=== PATIENT | female | born 1980 | race Caucasian/White ===

== ENCOUNTER 2023-10-20 10:45 | Inpatient (IN) | payer OTHER ==
[~2023-10-20 10:45] MED LIST: TYLENOL-CODEINE1 TAB PO
[2023-10-20 11:24] VITALS: BP 115/82
[2023-10-26] MEDS ORDERED: CEFAZOLIN SODIUM 1,000 MG VIAL ONE (08:26)
[2023-10-26] MEDS ORDERED: POVIDONE-IODINE 118 ML BOTT TOP ONE (09:25)
[2023-10-26] MEDS ORDERED: HEMOSTATIC MATRIX 1 KIT KIT TOP ONE (11:21)
[2023-10-26] MEDS ORDERED: SURGIFLO APPLICATOR 1 EACH APPL TOP ONE ×2 (11:22→11:23)
[2023-10-26] MEDS ORDERED: SUGAMMADEX SODIUM 200 MG/2 ML VIAL IV ONE (11:39)
[2023-10-26] MEDS ORDERED: MORPHINE SULFATE 4 MG,MORPHINE SULFATE 2 MG IV PRN (12:00)
[2023-10-26] MEDS ORDERED: ONDANSETRON HCL 2 MG/ML VIAL IV PRN (12:15)
[2023-10-26] MEDS ORDERED: RINGERS SOLUTION,LACTATED 1,000 ML IV SCH (12:15)
[2023-10-26] MEDS ORDERED: MORPHINE SULFATE 4 MG/ML VIAL IV PRN (12:15)
[2023-10-26] MEDS ORDERED: MORPHINE SULFATE 4 MG/ML VIAL IV ONE ×2 (12:45→13:15)
[2023-10-26] MEDS ORDERED: MORPHINE SULFATE 4 MG,MORPHINE SULFATE 2 MG IV SCH (16:00)
[2023-10-26 16:53] VITALS: BP 97/64
[2023-10-26 16:58] LABS: HEMATOCRIT 34.8 % (36.0-45.00); HEMOGLOBIN 11.8 g/dL (12.0-15.00); MEAN CELL VOLUME 89.8 fL (80.00-100.00); MEAN CORPUSCULAR HEMOGLOBIN 30.3 pg (27.00-32.0); MEAN CORPUSCULAR HGB CONC 33.7 g/dl (32.0-36.0); PLATELET COUNT 256 K/uL (150-450); RED BLOOD COUNT 3.88 M/uL (4.00-6.00); RED CELL DISTRIBUTION WIDTH 12.8 % (11.5-14.5)
[2023-10-26] MEDS ORDERED: CEFAZOLIN SODIUM 1,000 MG VIAL IV SCH (18:00)
[2023-10-26 20:14] LABS: HEMATOCRIT 32.2 % (36.0-45.00); HEMOGLOBIN 11.2 g/dL (12.0-15.00); MEAN CELL VOLUME 87.9 fL (80.00-100.00); MEAN CORPUSCULAR HEMOGLOBIN 30.7 pg (27.00-32.0); MEAN CORPUSCULAR HGB CONC 34.9 g/dl (32.0-36.0); PLATELET COUNT 265 K/uL (150-450); RED BLOOD COUNT 3.66 M/uL (4.00-6.00); RED CELL DISTRIBUTION WIDTH 12.9 % (11.5-14.5)
[2023-10-27 00:08] VITALS: BP 93/65
[2023-10-27 04:30] VITALS: BP 93/65
[2023-10-27] MEDS ORDERED: IBUprofen 800 MG TABLET PO PRN (07:00)
[2023-10-27] MEDS ORDERED: GABAPENTIN 300 MG CAPSULE PO PRN (07:00)
[2023-10-27 08:35] VITALS: BP 117/78
[2023-10-27] MEDS ORDERED: ENOXAPARIN SODIUM 40 MG/0.4 ML SYRINGE SUBCUTANEO SCH (09:00)
[2023-10-27] MEDS ORDERED: CIPROFLOXACIN HCL 500 MG TABLET PO SCH (09:00)
[2023-10-27 12:40] VITALS: BP 108/67
[2023-10-27 17:20] VITALS: BP 101/66
[2023-10-28 00:17] VITALS: BP 122/75
[2023-10-28] MEDS ORDERED: CIPROFLOXACIN500 MG PO (07:09)
[2023-10-28] MEDS ORDERED: GABAPENTIN300 MG PO (07:09)
[2023-10-28] MEDS ORDERED: IBUPROFEN800 MG PO (07:09)
[2023-10-28 08:20] VITALS: BP 120/78
== END 2023-10-28 10:22 | disposition home or self-care (01) | DRG 743 ==
LOC: O/R 10-26 05:38 → SURH 10-26 09:00 → OB/GYN 10-26 12:39
PROVIDERS: ADMIT Obstetrics & Gynecology Gynecology; ATTEND Obstetrics & Gynecology Gynecology
PROC: 0UT7FZZ Resection of Bilateral Fallopian Tubes, Via Natural or Artificial Opening With Percutaneous Endoscopic Assistance (ICD-10-PCS; 2023-10-26)
PROC: 0UT9FZZ Resection of Uterus, Via Natural or Artificial Opening With Percutaneous Endoscopic Assistance (ICD-10-PCS; principal; 2023-10-26 09:00)
PROC: BT43ZZZ Ultrasonography of Bilateral Kidneys (ICD-10-PCS; 2023-10-27)
DX: D25.1 Intramural leiomyoma of uterus (principal); N85.01 Benign endometrial hyperplasia; Z20.822 Contact with and (suspected) exposure to COVID-19